=== PATIENT | female | born 1945 | race Caucasian/White ===

== ENCOUNTER 2017-06-30 15:10 | Inpatient (IN) | payer MEDICARE ==
[~2017-06-30] VITALS: Ht 160 cm; Wt 112.5 kg
[~2017-06-30 15:10] MED LIST: ATORVASTATIN CA40 M1 PO; CALCIUM PO; CIPRO500 MG PO; COUMADIN4 M2 PO; CUBICIN IV; Clopidogrel75 MG PO; EFFEXOR XR37.5 M1 PO; HYDROCODONE BIT1 T11 PO; KLONOPIN0.5 MG PO; LIPITOR40 MG PO; NEURONTIN100 MG PO; NEURONTIN300 MG PO; NORCO 325 MG-101 TAB PO; OXYCODONE AND A1 TA9 PO; Oscal,Oyster S500 MG PO; PLAVIX75 MG PO; SENNA8.6 MG PO; VENLAFAXINE37.5 M1 PO; VITAMIN D50000 I3 PO; ZOFRAN ODT4 MG SL
[2017-06-30 15:14] VITALS: BP 152/70
[2017-06-30 15:53] LABS: BASO % 0.4 % (0.0-1.0); EOS % 0.1 % (1.0-4.0); HEMATOCRIT 35.3 % (37.0-47.0); HEMOGLOBIN 10.7 g/dl (12.0-16.0); LYMPH # 1.4 10*3/uL (1.3-4.4); MEAN CELL VOLUME 78.6 fl (81.0-99.0); MEAN CORPUSCULAR HGB 23.8 pg (27.0-31.0); MEAN CORPUSCULAR HGB CONC 30.3 g/dl (33.0-37.0); MEAN PLATELET VOLUME 9.2 fl (9.6-12.3); MONO # 0.9 10*3/uL (0.1-1.0); NEUT # 7.1 10*3/uL (2.3-7.9); NEUT % 75.1 % (47.0-73.0); PLATELET COUNT AUTOMATED 358 10*3/uL (130-400); RED BLOOD COUNT 4.49 10*6/uL (4.10-5.10); RED CELL DISTRI WIDTH 17.8 % (0-14.5); WHITE BLOOD COUNT 9.4 10*3/uL (4.8-10.8)
[2017-06-30 16:00] LABS: ACT PARTIAL THROMBO TIME 20.7 SECONDS (20.8-31.5); INTERNATIONAL NORM RATIO 0.9 (2.0-3.5)
[2017-06-30 16:13] LABS: ALBUMIN 3.1 gm/dl (3.1-4.5); ALKALINE PHOSPHATASE 137 U/L (45-117); BUN 19 mg/dl (7-24); CHLORIDE 108 mmol/L (98-107); CREATININE 0.81 mg/dL (0.55-1.02); POTASSIUM 4.5 mmol/L (3.5-5.1); SGOT/AST 17 IU/L (3-35); SGPT/ALT 19 U/L (12-78); SODIUM 142 mmol/L (136-145); TOTAL PROTEIN 7.5 gm/dL (6.4-8.2); TROPONIN I < 0.015 ng/ml (<0.045)
[2017-06-30 16:30] VITALS: BP 176/78
[2017-06-30 17:30] VITALS: BP 168/69
[2017-06-30 18:41] VITALS: BP 162/68
[2017-06-30] MEDS ORDERED: VISTARIL25 M2 PO (19:10)
[2017-06-30] MEDS ORDERED: Motrin,Rufen800 MG PO (19:11)
[2017-06-30 20:00] VITALS: BP 149/78
[2017-06-30 21:35] LABS: BILIRUBIN NEGATIVE (NEGATIVE); BLOOD NEGATIVE (NEGATIVE); CLARITY SL CLOUDY (CLEAR); COLOR YELLOW (YELLOW); GLUCOSE NEGATIVE (NEGATIVE); KETONE NEGATIVE (NEGATIVE); LEUKO ESTERASE 2+ (NEGATIVE); NITRITE POSITIVE (NEGATIVE); PH 5.5 (5.0-9.0); UROBILINOGEN 0.2 E.U./dl (0.2-1.0)
[2017-06-30 21:52] LABS: BACTERIA 3+; EPITHELIAL CELLS TNTC
[2017-06-30 21:53] LABS: WBC TNTC wbc/hpf (0-5)
[2017-06-30 23:57] VITALS: BP 150/68
[2017-07-01 03:18] VITALS: BP 148/62
[2017-07-01 07:27] LABS: BASO % 0.6 % (0.0-1.0); EOS % 0.3 % (1.0-4.0); HEMATOCRIT 32.8 % (37.0-47.0); HEMOGLOBIN 9.9 g/dl (12.0-16.0); LYMPH # 1.4 10*3/uL (1.3-4.4); LYMPH % 20.5 % (27.0-41.0); MEAN CELL VOLUME 77.9 fl (81.0-99.0); MEAN CORPUSCULAR HGB 23.5 pg (27.0-31.0); MEAN CORPUSCULAR HGB CONC 30.2 g/dl (33.0-37.0); MEAN PLATELET VOLUME 9.5 fl (9.6-12.3); MONO # 0.6 10*3/uL (0.1-1.0); MONO % 8.1 % (3.0-9.0); NEUT # 4.9 10*3/uL (2.3-7.9); NEUT % 70.2 % (47.0-73.0); PLATELET COUNT AUTOMATED 341 10*3/uL (130-400); RED BLOOD COUNT 4.21 10*6/uL (4.10-5.10); RED CELL DISTRI WIDTH 17.7 % (0-14.5); WHITE BLOOD COUNT 6.9 10*3/uL (4.8-10.8)
[2017-07-01 07:44] LABS: ACT PARTIAL THROMBO TIME 21.9 SECONDS (20.8-31.5); INTERNATIONAL NORM RATIO 0.9 (2.0-3.5)
[2017-07-01 07:45] LABS: ALBUMIN 2.8 gm/dl (3.1-4.5); BUN 13 mg/dl (7-24); CHLORIDE 108 mmol/L (98-107); CHOLESTEROL 124 mg/dL (<200); CREATININE 0.63 mg/dL (0.55-1.02); PHOSPHOROUS 3.7 mg/dL (2.5-4.9); POTASSIUM 4.2 mmol/L (3.5-5.1); SGOT/AST 15 IU/L (3-35); SGPT/ALT 17 U/L (12-78); SODIUM 142 mmol/L (136-145); TRIGLYCERIDES 66 mg/dl (<150); VLDL CHOLESTEROL 13 mg/dL (6-40)
[2017-07-01 07:51] LABS: ALKALINE PHOSPHATASE 126 U/L (45-117); FREE T4 0.92 ng/dl (0.76-1.46); HDL CHOLESTEROL 81 mg/dl (40-60); LDL CHOLESTEROL 30 mg/dL (9-159); TOTAL PROTEIN 6.7 gm/dL (6.4-8.2)
[2017-07-01 08:54] LABS: VITAMIN D, 25-HYDROXY 19.7 ng/mL (30-100)
[2017-07-01 12:00] VITALS: BP 143/62
[2017-07-01 16:00] VITALS: BP 135/61
[2017-07-01] MEDS ORDERED: ASPIRIN ADULT L81 M2 PO (16:26)
[2017-07-01] MEDS ORDERED: LISINOPRIL10 M1 PO (16:26)
== END 2017-07-01 17:25 | disposition home or self-care (01) | DRG 313 ==
LOC: ED 15:10 → EDHOLD 16:54 → 5E 17:58
PROVIDERS: Family Medicine; Physician Assistant
PROC: 4A02XM4 Measurement of Cardiac Total Activity, External Approach (ICD-10-PCS; principal; 2017-07-01)
PROC: 3E073KZ Introduction of Other Diagnostic Substance into Coronary Artery, Percutaneous Approach (ICD-10-PCS; principal; 2017-07-01)
DX: R07.89 Other chest pain (principal); E87.8 Other disorders of electrolyte and fluid balance, not elsewhere classified; E83.41 Hypermagnesemia; Z68.41 Body mass index [BMI] 40.0-44.9, adult; I10 Essential (primary) hypertension; F41.9 Anxiety disorder, unspecified; G62.9 Polyneuropathy, unspecified; F32.9 Major depressive disorder, single episode, unspecified; E78.5 Hyperlipidemia, unspecified; E66.9 Obesity, unspecified; Z96.653 Presence of artificial knee joint, bilateral; D50.9 Iron deficiency anemia, unspecified; D72.810 Lymphocytopenia; Z86.73 Personal history of transient ischemic attack (TIA), and cerebral infarction without residual deficits; Z90.49 Acquired absence of other specified parts of digestive tract; Z90.710 Acquired absence of both cervix and uterus; Z91.041 Radiographic dye allergy status; Z79.01 Long term (current) use of anticoagulants; Z79.899 Other long term (current) drug therapy; Z83.3 Family history of diabetes mellitus

== ENCOUNTER 2017-08-12 17:39 | Emergency (ER) | payer MEDICARE ==
[~2017-08-12] VITALS: Ht 160 cm; Wt 102.5 kg
[~2017-08-12 17:39] MED LIST changes: +ASPIRIN ADULT L81 M2 PO; +LISINOPRIL10 M1 PO; +Motrin,Rufen800 MG PO; +VISTARIL25 M2 PO
== END 2017-08-12 19:33 | disposition home or self-care (01) ==
LOC: ED 17:39
DX: M79.662 Pain in left lower leg (principal); Z86.718 Personal history of other venous thrombosis and embolism; Z91.041 Radiographic dye allergy status; Z79.899 Other long term (current) drug therapy

== ENCOUNTER 2019-07-26 12:28 | Emergency (ER) | payer MEDICARE ==
[~2019-07-26] VITALS: Ht 162.5 cm; Wt 86.2 kg
[2019-07-26 13:08] LABS: BASO # 0.1 10*3/uL (0.0-0.1); BASO % 0.8 % (0.0-1.0); EOS # 0.2 10*3/uL (0.0-0.4); EOS % 2.3 % (1.0-4.0); HEMATOCRIT 36.7 % (37.0-47.0); HEMOGLOBIN 10.3 g/dl (12.0-16.0); LYMPH # 1.6 10*3/uL (1.3-4.4); LYMPH % 15.9 % (27.0-41.0); MEAN CELL VOLUME 85.3 fl (81.0-99.0); MEAN CORPUSCULAR HGB CONC 28.1 g/dl (33.0-37.0); MEAN PLATELET VOLUME 9.3 fl (9.6-12.3); MONO # 0.9 10*3/uL (0.1-1.0); MONO % 8.9 % (3.0-9.0); NEUT # 7.3 10*3/uL (2.3-7.9); NEUT % 71.6 % (47.0-73.0); NUCLEATED RED BLOOD CELL 0.2 % (0.0-0.0); PLATELET COUNT AUTOMATED 484 10*3/uL (130-400); RED CELL DISTRI WIDTH 24.1 % (0-14.5); WHITE BLOOD COUNT 10.2 10*3/uL (4.8-10.8)
[2019-07-26 13:20] LABS: ACT PARTIAL THROMBO TIME 22.6 SECONDS (20.0-32.1); INTERNATIONAL NORM RATIO 0.9 (2.0-3.5)
[2019-07-26 13:27] LABS: ALBUMIN 2.9 gm/dl (3.1-4.5); ALKALINE PHOSPHATASE 125 U/L (45-117); BUN 12 mg/dl (7-24); CHLORIDE 107 mmol/L (98-107); CREATININE 0.74 mg/dL (0.55-1.02); POTASSIUM 4.2 mmol/L (3.5-5.1); SGOT/AST 18 IU/L (3-35); SGPT/ALT 17 U/L (12-78); SODIUM 140 mmol/L (136-145); TOTAL PROTEIN 6.9 gm/dL (6.4-8.2)
[2019-07-26 13:29] LABS: TROPONIN I < 0.015 ng/ml (<0.045)
[2019-07-26 14:48] LABS: BILIRUBIN 1+ (NEGATIVE); BLOOD NEGATIVE (NEGATIVE); CLARITY CLOUDY (CLEAR); COLOR YELLOW (YELLOW); GLUCOSE NEGATIVE (NEGATIVE); KETONE 1+ (NEGATIVE); LEUKO ESTERASE 1+ (NEGATIVE); NITRITE POSITIVE (NEGATIVE)
[2019-07-26 14:49] LABS: BACTERIA 4+; WBC 21-30 wbc/hpf (0-5)
[2019-07-26 14:53] LABS: MUCOUS 2+
== END 2019-07-26 18:21 | disposition short-term general hospital (02) ==
LOC: ED 12:28
PROVIDERS: Emergency Medicine
DX: G40.901 Epilepsy, unspecified, not intractable, with status epilepticus (principal); I10 Essential (primary) hypertension; E66.9 Obesity, unspecified; G62.9 Polyneuropathy, unspecified; E78.5 Hyperlipidemia, unspecified; Z68.39 Body mass index [BMI] 39.0-39.9, adult; Z91.041 Radiographic dye allergy status; Z79.899 Other long term (current) drug therapy; Z86.718 Personal history of other venous thrombosis and embolism

== ENCOUNTER 2019-08-02 05:43 | Inpatient (IN) | payer MEDICARE ==
[~2019-08-02] VITALS: Ht 160 cm; Wt 104.9 kg
[2019-08-02 05:51] VITALS: BP 103/61
[2019-08-02 07:10] VITALS: BP 117/60
[2019-08-02 07:15] LABS: ACT PARTIAL THROMBO TIME 23.8 SECONDS (20.0-32.1); INTERNATIONAL NORM RATIO 0.9 (2.0-3.5)
[2019-08-02 07:19] LABS: BASO % 0.7 % (0.0-1.0); EOS # 0.1 10*3/uL (0.0-0.4); EOS % 2.4 % (1.0-4.0); HEMATOCRIT 32.5 % (37.0-47.0); HEMOGLOBIN 9.4 g/dl (12.0-16.0); LYMPH # 0.8 10*3/uL (1.3-4.4); MEAN CELL VOLUME 83.1 fl (81.0-99.0); MEAN CORPUSCULAR HGB CONC 28.9 g/dl (33.0-37.0); MEAN PLATELET VOLUME 9.3 fl (9.6-12.3); MONO # 0.7 10*3/uL (0.1-1.0); MONO % 12.8 % (3.0-9.0); NEUT # 3.8 10*3/uL (2.3-7.9); NEUT % 68.4 % (47.0-73.0); PLATELET COUNT AUTOMATED 412 10*3/uL (130-400); RED BLOOD COUNT 3.91 10*6/uL (4.10-5.10); RED CELL DISTRI WIDTH 23.1 % (0-14.5); WHITE BLOOD COUNT 5.5 10*3/uL (4.8-10.8)
[2019-08-02 07:23] LABS: ALBUMIN 2.7 gm/dl (3.1-4.5); ALKALINE PHOSPHATASE 101 U/L (45-117); BUN 12 mg/dl (7-24); CHLORIDE 110 mmol/L (98-107); CREATININE 0.75 mg/dL (0.55-1.02); SGOT/AST 22 IU/L (3-35); SGPT/ALT 20 U/L (12-78); TOTAL PROTEIN 6.4 gm/dL (6.4-8.2)
[2019-08-02 07:26] LABS: POTASSIUM 4.2 mmol/L (3.5-5.1); SODIUM 140 mmol/L (136-145)
[2019-08-02 08:40] VITALS: BP 111/42
[2019-08-02 09:07] VITALS: BP 111/42
[2019-08-02] MEDS ORDERED: HYDROCHLOROTH12.5 M3 PO (09:12)
[2019-08-02] MEDS ORDERED: LOSARTAN POTASS50 M1 PO (09:13)
[2019-08-02] MEDS ORDERED: CEFDINIR300 MG PO (09:14)
[2019-08-02] MEDS ORDERED: KEPPRA500 MG PO (09:14)
[2019-08-02] MEDS ORDERED: IMITREX25 M1 PO (09:15)
[2019-08-02] MEDS ORDERED: VENLAFAXINE150 MG PO (09:15)
[2019-08-02] MEDS ORDERED: MIRALAX POWDER17 G1 PO (09:16)
[2019-08-02] MEDS ORDERED: PLAVIX75 M1 PO (09:16)
[2019-08-02] MEDS ORDERED: PROTONIX40 MG PO (09:17)
[2019-08-02] MEDS ORDERED: SENNA-S LAXATI1 EACH PO (09:22)
[2019-08-02] MEDS ORDERED: ZOFRAN4 MG PO (09:23)
[2019-08-02 16:00] VITALS: BP 115/52
[2019-08-02 20:00] VITALS: BP 123/57
[2019-08-03] VITALS: BP 110/61
[2019-08-03 06:55] LABS: ALBUMIN 2.1 gm/dl (3.1-4.5); BUN 10 mg/dl (7-24); CHLORIDE 114 mmol/L (98-107); CHOLESTEROL 108 mg/dL (<200); CREATININE 0.66 mg/dL (0.55-1.02); PHOSPHOROUS 3.3 mg/dL (2.5-4.9); POTASSIUM 4.3 mmol/L (3.5-5.1); SGOT/AST 34 IU/L (3-35); SGPT/ALT 18 U/L (12-78); SODIUM 142 mmol/L (136-145)
[2019-08-03 07:02] LABS: ALKALINE PHOSPHATASE 89 U/L (45-117); FREE T4 0.95 ng/dl (0.76-1.46); HDL CHOLESTEROL 52 mg/dl (40-60); LDL CHOLESTEROL 37 mg/dL (9-159); TOTAL PROTEIN 5.6 gm/dL (6.4-8.2); TRIGLYCERIDES 97 mg/dl (<150); VLDL CHOLESTEROL 19 mg/dL (6-40)
[2019-08-03 07:05] LABS: BASO % 0.5 % (0.0-1.0); EOS # 0.1 10*3/uL (0.0-0.4); EOS % 2.6 % (1.0-4.0); LYMPH # 1.1 10*3/uL (1.3-4.4); LYMPH % 27.3 % (27.0-41.0); MEAN CELL VOLUME 85.1 fl (81.0-99.0); MEAN CORPUSCULAR HGB 24.3 pg (27.0-31.0); MEAN CORPUSCULAR HGB CONC 28.6 g/dl (33.0-37.0); MEAN PLATELET VOLUME 9.3 fl (9.6-12.3); MONO # 0.7 10*3/uL (0.1-1.0); MONO % 17.4 % (3.0-9.0); NEUT % 51.7 % (47.0-73.0); PLATELET COUNT AUTOMATED 325 10*3/uL (130-400); RED BLOOD COUNT 3.29 10*6/uL (4.10-5.10); RED CELL DISTRI WIDTH 22.7 % (0-14.5); WHITE BLOOD COUNT 3.8 10*3/uL (4.8-10.8)
[2019-08-03 08:00] VITALS: BP 118/60
[2019-08-03 12:00] VITALS: BP 110/50
[2019-08-03 16:00] VITALS: BP 123/58
[2019-08-03 20:00] VITALS: BP 127/43; BP 130/50
[2019-08-04] VITALS: BP 102/56
[2019-08-04 06:23] LABS: BASO % 0.5 % (0.0-1.0); HEMATOCRIT 29.2 % (37.0-47.0); LYMPH # 1.2 10*3/uL (1.3-4.4); LYMPH % 28.6 % (27.0-41.0); MEAN CELL VOLUME 85.6 fl (81.0-99.0); MEAN CORPUSCULAR HGB 23.5 pg (27.0-31.0); MEAN CORPUSCULAR HGB CONC 27.4 g/dl (33.0-37.0); MEAN PLATELET VOLUME 9.2 fl (9.6-12.3); MONO # 0.5 10*3/uL (0.1-1.0); MONO % 12.2 % (3.0-9.0); NEUT # 2.3 10*3/uL (2.3-7.9); NEUT % 57.2 % (47.0-73.0); PLATELET COUNT AUTOMATED 357 10*3/uL (130-400); RED BLOOD COUNT 3.41 10*6/uL (4.10-5.10); RED CELL DISTRI WIDTH 22.9 % (0-14.5); WHITE BLOOD COUNT 4.1 10*3/uL (4.8-10.8)
[2019-08-04 06:30] LABS: BUN 6 mg/dl (7-24); CHLORIDE 114 mmol/L (98-107); CREATININE 0.65 mg/dL (0.55-1.02); POTASSIUM 3.7 mmol/L (3.5-5.1); SODIUM 145 mmol/L (136-145)
[2019-08-04 08:29] VITALS: BP 100/54
[2019-08-04] MEDS ORDERED: CIPROFLOXACIN500 M4 PO (10:52)
[2019-08-04] MEDS ORDERED: MIRTAZAPINE15 M2 PO (10:52)
[2019-08-04 12:00] VITALS: BP 104/69
== END 2019-08-04 16:30 | disposition other institution (70) | DRG 312 ==
LOC: ED 05:43 → 4E 08:04 → EDHOLD 08:04 → 4E 08:19
PROVIDERS: Emergency Medicine; Internal Medicine; ADMIT Family Medicine
PROC: 0HQ1XZZ Repair Face Skin, External Approach (ICD-10-PCS; principal; 2019-08-02)
DX: I95.1 Orthostatic hypotension (principal); E43 Unspecified severe protein-calorie malnutrition; F33.3 Major depressive disorder, recurrent, severe with psychotic symptoms; Z68.41 Body mass index [BMI] 40.0-44.9, adult; N30.00 Acute cystitis without hematuria; S01.81XA Laceration without foreign body of other part of head, initial encounter; F41.9 Anxiety disorder, unspecified; F43.21 Adjustment disorder with depressed mood; W19.XXXA Unspecified fall, initial encounter; S70.01XA Contusion of right hip, initial encounter; S09.90XA Unspecified injury of head, initial encounter; E87.8 Other disorders of electrolyte and fluid balance, not elsewhere classified; R73.9 Hyperglycemia, unspecified; D50.9 Iron deficiency anemia, unspecified; I10 Essential (primary) hypertension; E78.5 Hyperlipidemia, unspecified; G62.9 Polyneuropathy, unspecified; F41.8 Other specified anxiety disorders; D47.3 Essential (hemorrhagic) thrombocythemia; F44.9 Dissociative and conversion disorder, unspecified; B95.2 Enterococcus as the cause of diseases classified elsewhere; Y93.89 Activity, other specified; Z79.899 Other long term (current) drug therapy; Z79.82 Long term (current) use of aspirin; Z88.8 Allergy status to other drugs, medicaments and biological substances; Y99.8 Other external cause status; Y92.10 Unspecified residential institution as the place of occurrence of the external cause

== ENCOUNTER → 2020-03-11 | Outpatient (CLI) | payer MEDICARE ==
[~2020-03-11] MED LIST changes: +CEFDINIR300 MG PO; +CIPROFLOXACIN500 M4 PO; +DIVALPROEX SOD500 MG PO; +HYDROCHLOROTH12.5 M3 PO; +IMITREX25 M1 PO; +KEPPRA500 MG PO; +LEVETIRACETAM1000 M1 PO; +LOSARTAN POTASS50 M1 PO; +LOSARTAN-HCTZ1 EACH PO; +MIRALAX POWDER17 G1 PO; +MIRTAZAPINE15 M2 PO; +PLAVIX75 M1 PO; +PROTONIX40 MG PO; +SENNA-S LAXATI1 EACH PO; +VENLAFAXINE HC100 MG PO; +VENLAFAXINE150 MG PO; +ZOFRAN4 MG PO
[2020-03-11 11:01] LABS: HEMATOCRIT 46.6 % (37.0-47.0); MEAN CELL VOLUME 99.6 fl (81.0-99.0); MEAN CORPUSCULAR HGB 30.8 pg (27.0-31.0); MEAN CORPUSCULAR HGB CONC 30.9 g/dl (33.0-37.0); MEAN PLATELET VOLUME 9.9 fl (9.6-12.3); RED BLOOD COUNT 4.68 10*6/uL (4.10-5.10); RED CELL DISTRI WIDTH 14.4 % (0-14.5); WHITE BLOOD COUNT 5.8 10*3/uL (4.8-10.8)
[2020-03-11 11:32] LABS: ALKALINE PHOSPHATASE 94 U/L (45-117); BUN 18 mg/dl (7-24); CHLORIDE 109 mmol/L (98-107); CHOLESTEROL 160 mg/dL (<200); CREATININE 0.88 mg/dL (0.55-1.02); HDL CHOLESTEROL 71 mg/dl (40-60); LDL CHOLESTEROL 67 mg/dL (9-159); POTASSIUM 3.9 mmol/L (3.5-5.1); SGOT/AST 18 IU/L (3-35); SGPT/ALT 19 U/L (12-78); SODIUM 134 mmol/L (136-145); TOTAL PROTEIN 7.1 gm/dL (6.4-8.2); TRIGLYCERIDES 112 mg/dl (<150); VLDL CHOLESTEROL 22 mg/dL (6-40)
[2020-03-11 12:13] LABS: VITAMIN D, 25-HYDROXY 10.8 ng/mL (30-100)
== END | disposition home or self-care (01) ==
LOC: LAB 10:28
PROVIDERS: ATTEND Family Medicine
DX: E78.00 Pure hypercholesterolemia, unspecified (principal); K21.9 Gastro-esophageal reflux disease without esophagitis; E55.9 Vitamin D deficiency, unspecified; R53.83 Other fatigue; I10 Essential (primary) hypertension; I63.9 Cerebral infarction, unspecified

== ENCOUNTER 2020-03-20 15:18 | Inpatient (IN) | payer MEDICARE ==
[~2020-03-20] VITALS: Ht 160 cm; Wt 100.9 kg
[~2020-03-20 15:18] MED LIST changes: -DIVALPROEX SOD500 MG PO; -LEVETIRACETAM1000 M1 PO; -LOSARTAN-HCTZ1 EACH PO; -VENLAFAXINE HC100 MG PO
--- NOTE | 2020-03-20 15:30 | NUR ---
PATIENT HAS BEEN STRAIGHT CATHED FOR URINE AT THIS TIME. 300ML OUT OF DARK BTU CLEAR URINE.
[2020-03-20 15:58] VITALS: BP 174/97
--- NOTE | 2020-03-20 16:01 | NUR ---
PATIENT HAS RASH NOTED TO BL ABDOMINAL FOLDS AND BL UPPER THIGH FOLDS. PATIENT DENIES PHOTOS AT THIS TIME.
[2020-03-20 16:20] LABS: HEMATOCRIT 49.3 % (37.0-47.0); MEAN CELL VOLUME 98.8 fl (81.0-99.0); MEAN CORPUSCULAR HGB 31.5 pg (27.0-31.0); MEAN CORPUSCULAR HGB CONC 31.8 g/dl (33.0-37.0); MEAN PLATELET VOLUME 9.2 fl (9.6-12.3); PLATELET COUNT AUTOMATED 198 10*3/uL (130-400); RED BLOOD COUNT 4.99 10*6/uL (4.10-5.10); RED CELL DISTRI WIDTH 13.8 % (0-14.5); WHITE BLOOD COUNT 7.3 10*3/uL (4.8-10.8)
--- NOTE | 2020-03-20 16:23 | NUR ---
dr connors made aware of daughter inquiring patient's condition. He states that he will go and speak with her
[2020-03-20 16:31] LABS: BILIRUBIN 1+ (Negative); BLOOD Negative (Negative); CLARITY Clear (Clear); COLOR Dark Yellow (Yellow); GLUCOSE Negative (Negative); KETONE Trace (Negative); LEUKO ESTERASE 1+ (Negative); NITRITE Positive (Negative); SPECIFIC GRAVITY 1.025 (1.001-1.030)
[2020-03-20 16:35] LABS: ACT PARTIAL THROMBO TIME 24.5 SECONDS (20.0-32.1)
[2020-03-20 16:39] LABS: URINE AMPHETAMINES < 1000 (1000ng/ml); URINE BARBITURATES < 200 (200ng/ml); URINE BENZODIAZEPINES < 200 (200ng/ml); URINE CANNABINOIDS (THC) < 50 (50ng/ml); URINE COCAINE < 300 (300ng/ml); URINE METHADONE < 300 (300ng/ml); URINE OPIATES < 300 (300ng/ml)
[2020-03-20 16:40] LABS: BACTERIA 1+; MUCOUS 2+; RBC 0-2 rbc/hpf (0-2)
[2020-03-20 16:41] LABS: URINE PHENCYCLIDINE < 25 (25ng/ml)
[2020-03-20 16:44] LABS: BASOPHILS 1 % (0-1); TOTAL CELLS COUNTED 100 #CELLS
[2020-03-20 16:45] LABS: PLATELET SUFFICIENCY NORMAL (NORMAL)
[2020-03-20 17:09] LABS: ALBUMIN 3.5 gm/dl (3.1-4.5); ALKALINE PHOSPHATASE 110 U/L (45-117); BUN 15 mg/dl (7-24); CHLORIDE 104 mmol/L (98-107); CREATININE 0.86 mg/dL (0.55-1.02); POTASSIUM 3.9 mmol/L (3.5-5.1); SGOT/AST 20 IU/L (3-35); SGPT/ALT 24 U/L (12-78); SODIUM 138 mmol/L (136-145)
[2020-03-20 17:23] LABS: TROPONIN I < 0.015 ng/ml (<0.045)
--- NOTE | 2020-03-20 18:41 | NUR ---
PATIENT UNABLE TO GO TO FLOOR UNTIL AFTER SHIFT CHANGE.
--- NOTE | 2020-03-20 19:05 | NUR ---
PATIENT REPORT TO JERMAINE HERNANDEZ AT THIS TIME.
--- NOTE | 2020-03-20 19:13 | NUR ---
NURSE TO NURSE REPORT GIVEN TO THIS RN
[2020-03-20] MEDS ORDERED: DIVALPROEX SOD500 MG PO (19:34)
[2020-03-20] MEDS ORDERED: LEVETIRACETAM1000 M1 PO (19:35)
[2020-03-20] MEDS ORDERED: LOSARTAN-HCTZ1 EACH PO (19:36)
[2020-03-20] MEDS ORDERED: VENLAFAXINE HC100 MG PO (19:37)
[2020-03-20 19:50] VITALS: BP 127/43
[2020-03-20 20:45] VITALS: BP 120/50
--- NOTE | 2020-03-20 20:45 | NUR ---
A 74, admitted to 5E, under the services of ZURI Syed MD with a diagnosis of STROKE LIKE SYMPTOMS. Chief complaint is WEAKNESS. Patient arrived via bed from ER. Monitor applied. Initial assessment completed. Vital signs taken and recorded. ZURI SYED MD notified of admission to the unit. Orders received. See assessment for past medical history, medications and allergies. Patient and/or family oriented to unit. [facility] visitation policy reviewed. Clothing/patient valuable form completed. JUAN WEATHERS
--- NOTE | 2020-03-20 21:00 | NUR ---
DR URIBE CALLED. ORDERS RECEIVED. NOTIFIED OF UNABLE TO VERIFY HOME MEDICATIONS. DAUGHTER WILL BRING LIST IN AM.
--- NOTE | 2020-03-20 23:00 | NUR ---
PT LYING IN BED, EYES CLOSED. RESPIRATIONS EASY AND UNLABORED. CALL LIGHT IN REACH
[2020-03-21] VITALS: BP 116/43
--- NOTE | 2020-03-21 02:00 | NUR ---
PT SLEEPING AT THIS TIME. IV FLUIDS INFUSING WITHOUT DIFFICULTY. NO S/S OF DISTRESS NOTED. CALL LIGHT IN REACH
--- NOTE | 2020-03-21 05:45 | NUR ---
IN TO SEE PT WITH WOUND CARE. PT ASSISTED ONTO BED BLACKMAN AT THIS TIME. NO COMPLAINTS.
[2020-03-21 06:29] LABS: BASO % 0.5 % (0.0-1.0); EOS % 0.2 % (1.0-4.0); LYMPH # 1.1 10*3/uL (1.3-4.4); LYMPH % 19.4 % (27.0-41.0); MEAN CELL VOLUME 98.8 fl (81.0-99.0); MEAN CORPUSCULAR HGB 31.1 pg (27.0-31.0); MEAN CORPUSCULAR HGB CONC 31.4 g/dl (33.0-37.0); MEAN PLATELET VOLUME 9.6 fl (9.6-12.3); MONO # 0.7 10*3/uL (0.1-1.0); MONO % 12.7 % (3.0-9.0); NEUT # 3.9 10*3/uL (2.3-7.9); NEUT % 66.3 % (47.0-73.0); PLATELET COUNT AUTOMATED 192 10*3/uL (130-400); RED BLOOD COUNT 4.25 10*6/uL (4.10-5.10); RED CELL DISTRI WIDTH 14.1 % (0-14.5); WHITE BLOOD COUNT 5.8 10*3/uL (4.8-10.8)
[2020-03-21 06:53] LABS: BUN 15 mg/dl (7-24); CHLORIDE 109 mmol/L (98-107); CREATININE 0.58 mg/dL (0.55-1.02); POTASSIUM 3.9 mmol/L (3.5-5.1); SODIUM 143 mmol/L (136-145)
[2020-03-21 08:00] VITALS: BP 143/60
--- NOTE | 2020-03-21 08:21 | NUR ---
SWITCHING IV TUBING, NS WASTED AT THIS TIME.
--- NOTE | 2020-03-21 09:00 | NUR ---
Soloist Dancer in to talk to patient. Patient states lives at home with her . There are 0 steps in the home. Physician: Dr. Will Logan Pharmacy: [facility] or mail order Home health services: none Patient's level of ADLs: MINIMAL ASSIST Patient has working utilities: yes DME: walker Follow-up physician's appointment after d/c: she prefers to make her own follow up appt after discharge Does patient want to access PORTAL?: no Discharge plan discussed with patient. She lives at home with her . She states she needs assistance with her ADLs and ambulates with a walker. Discussed short term rehab and she is agreeable. When provided with a list of facilities she chose [facility]. signal worker notified. JAZMIN DESOUZA
[2020-03-21 12:00] VITALS: BP 131/57
--- NOTE | 2020-03-21 14:33 | NUR ---
W[employer]EWARD FAXED REFERRAL TO [facility] WILL NEED PT/OT EVAL.
[2020-03-21 16:00] VITALS: BP 124/56
--- NOTE | 2020-03-21 19:30 | NUR ---
PATIENT RESTING IN BED. PATIENT TEARFUL AND STATES SHE HASN'T BEEN ABLE TO GET HER PHONE TO WORK TO CALL HER AND THAT SHE HASN'T BEEN WITH IT. ASSISTED PATIENT WITH USING HER PHONE AND WE WERE ABLE TO REACH HER . PATIENT STATES NOTICING SHE'S BEEN CONFUSED. VOICES NO OTHER CONCERNS. ASSESSMENT COMPLETE. RESPS EASY AND REGULAR. CALL LIGHT IN REACH. WILL MONITOR.
--- NOTE | 2020-03-21 19:37 | NUR ---
24 HR chart check completed.
[2020-03-21 20:00] VITALS: BP 140/53
[2020-03-22] VITALS: BP 111/44
--- NOTE | 2020-03-22 03:48 | NUR ---
MEDICATED WITH PRN TYLENOL FOR CO A HEADACHE. WILL ASSESS EFFECTIVENESS. CALL LIGHT IN REACH.
--- NOTE | 2020-03-22 07:45 | NUR ---
PHYSICAL THERAPY Eval and screen received will follow Jemima Machuca PT
--- NOTE | 2020-03-22 08:30 | NUR ---
Discussed discharge planning with Dr. Ji. Dr. Ji states patient doesn't want to go to [facility]. CM in to see patient. PT/OT in room. Discussed rehab at [facility] and patient would prefer not to go back there as the last time she was there she fell out of bed, hitting her head, and being sent to the hospital ER for stitches. Discussed another rehab facility and she wishes for CM to reach out to her family. Discussed home health care services and she is agreeable. She has had home health in the past but is unsure of the company. Will reach out to family.
--- NOTE | 2020-03-22 08:35 | NUR ---
PHYSICAL THERAPY Physical Therapy evaluation completed on 5th floor with full evaluation to follow. Recommend physical therapy per plan of care and SNF upon discharge. Thank you for this referral. Roberto Gayle SPT Jemima Machuca PT
--- NOTE | 2020-03-22 08:35 | NUR ---
Occupational Therapy evaluation completed on 5 with full eval to follow. Precautions include fall risk; bed alarm, +2 transfer assist, ww use w/assist,obesity, slow rate of response and slow processing,high complexity level [id number]. Recommend OT per pOC and SNF. Pt wants to return home w/ HH. Thank you for this referral. Jany Arriola OTr/L
--- NOTE | 2020-03-22 09:17 | NUR ---
Spoke to daughter, Mee, regarding discharge planning. Discussed short term rehab vs home health care services. Daughter states patient was at [facility] and it was a horrible experience. Her mother fell out of bed twice and had to be sent to the hospital ER for stitches. She would prefer her mother to come home. She states the patient's , herself, the daughter's son and [id number] all live in the home and are willing and able to help take care of her. Discussed home health care services and she is agreeable. When provided with a list of agencies she chose [facility] as the patient has had them in the past. Dr. Ji notified.
--- NOTE | 2020-03-22 09:39 | NUR ---
Faxed home health order, face to face, and clinical to [facility]
--- NOTE | 2020-03-22 11:26 | NUR ---
Received call from daughter regarding patient was supposed to get a B12 injection today at [facility]. Dr. Ji notified. Verified with [facility]. New orders received.
[2020-03-22 12:00] VITALS: BP 131/44
[2020-03-22 16:00] VITALS: BP 125/47
--- NOTE | 2020-03-22 19:30 | NUR ---
PATIENT RESTING IN BED. PATIENT STATES SHE IS FEELING MUCH BETTER TODAY. ANSWERING QUESTIONS APPROPRIATELY. ALERT AND ORIENTED X3. PATIENT STATES SHE IS NOT WANTING TO GO TO A FACILITY ON DISCHARGE FOR PT AND THAT HER IS SETTING THEM UP TO COME TO HER HOUSE AND WORK WITH HER. ASSESSMENT COMPLETE. RESPS EASY AND REGULAR. CALL LIGHT IN REACH.
[2020-03-22 20:00] VITALS: BP 141/53
--- NOTE | 2020-03-22 22:20 | NUR ---
24 HR chart check completed.
[2020-03-23] VITALS: BP 132/64
--- NOTE | 2020-03-23 04:00 | NUR ---
PATIENT INCONTINENT OF URINE AT THIS TIME. PATIENT WAS BATHED. COMPLETE BED CHANGE. NYSTATIN POWDER APPLIED UNDER BREASTS AND ABDOMINAL FOLDS AND THERAHONEY AND AN OPTIFOAM APPLIED TO COCCYX WOUND PER WOUND CARE ORDERS. BRIEF APPLIED AND PATIENT REPOSITIONED FOR COMFORT.
[2020-03-23 06:35] LABS: BASO % 0.7 % (0.0-1.0); EOS % 0.2 % (1.0-4.0); LYMPH # 1.2 10*3/uL (1.3-4.4); LYMPH % 22.3 % (27.0-41.0); MEAN CELL VOLUME 98.3 fl (81.0-99.0); MEAN CORPUSCULAR HGB 31.4 pg (27.0-31.0); MEAN PLATELET VOLUME 9.4 fl (9.6-12.3); MONO # 0.6 10*3/uL (0.1-1.0); MONO % 10.3 % (3.0-9.0); NEUT # 3.7 10*3/uL (2.3-7.9); NEUT % 65.6 % (47.0-73.0); PLATELET COUNT AUTOMATED 175 10*3/uL (130-400); RED BLOOD COUNT 4.17 10*6/uL (4.10-5.10); WHITE BLOOD COUNT 5.6 10*3/uL (4.8-10.8)
[2020-03-23 06:52] LABS: BUN 10 mg/dl (7-24); CHLORIDE 110 mmol/L (98-107); CREATININE 0.53 mg/dL (0.55-1.02); POTASSIUM 3.7 mmol/L (3.5-5.1); SODIUM 140 mmol/L (136-145)
[2020-03-23 08:00] VITALS: BP 137/55
--- NOTE | 2020-03-23 11:52 | NUR ---
Discharge instructions reviewed with patient. Patient receptive and verbalizes understanding. Follow-up care arranged. Written instructions given to patient. MELANIE BUCHANAN
--- NOTE | 2020-03-23 12:05 | NUR ---
PATIENT DISCHARGED TO [facility] FOR TRANSPORT HOME BY PRIVATE VEHICLE WITH HER .
--- NOTE | 2020-03-25 07:29 | NUR ---
Faxed discharge instructions and summary to [facility]
== END 2020-03-23 11:52 | disposition home health service (06) | DRG 70 ==
LOC: ED 15:18 → 5E 17:07 → EDHOLD 17:07 → 5E 19:17
PROVIDERS: Emergency Medicine; ADMIT Internal Medicine; ATTEND Internal Medicine
DX: G93.41 Metabolic encephalopathy (principal); E43 Unspecified severe protein-calorie malnutrition; I67.82 Cerebral ischemia; R53.1 Weakness; R62.7 Adult failure to thrive; I10 Essential (primary) hypertension; G40.909 Epilepsy, unspecified, not intractable, without status epilepticus; E78.2 Mixed hyperlipidemia; F41.1 Generalized anxiety disorder; F32.9 Major depressive disorder, single episode, unspecified; G30.0 Alzheimer's disease with early onset; Z96.653 Presence of artificial knee joint, bilateral; Z20.828 Contact with and (suspected) exposure to other viral communicable diseases; E66.9 Obesity, unspecified; G31.9 Degenerative disease of nervous system, unspecified; F02.80 Dementia in other diseases classified elsewhere, unspecified severity, without behavioral disturbance, psychotic disturbance, mood disturbance, and anxiety; Z88.6 Allergy status to analgesic agent; Z88.8 Allergy status to other drugs, medicaments and biological substances; Z91.041 Radiographic dye allergy status; Z86.73 Personal history of transient ischemic attack (TIA), and cerebral infarction without residual deficits; Z91.81 History of falling; Z87.440 Personal history of urinary (tract) infections; Z90.49 Acquired absence of other specified parts of digestive tract; Z90.710 Acquired absence of both cervix and uterus; Z98.84 Bariatric surgery status; Z83.3 Family history of diabetes mellitus; Z68.38 Body mass index [BMI] 38.0-38.9, adult

== ENCOUNTER 2020-04-02 12:44 | Emergency (ER) | payer MEDICARE ==
[~2020-04-02] VITALS: Ht 170.1 cm; Wt 93.0 kg
[~2020-04-02 12:44] MED LIST changes: +DIVALPROEX SOD500 MG PO; +LEVETIRACETAM1000 M1 PO; +LOSARTAN-HCTZ1 EACH PO; +VENLAFAXINE HC100 MG PO
[2020-04-02 13:55] LABS: BASO % 0.4 % (0.0-1.0); HEMATOCRIT 43.2 % (37.0-47.0); LYMPH # 1.2 10*3/uL (1.3-4.4); LYMPH % 15.4 % (27.0-41.0); MEAN CORPUSCULAR HGB 31.5 pg (27.0-31.0); MEAN CORPUSCULAR HGB CONC 32.2 g/dl (33.0-37.0); MEAN PLATELET VOLUME 9.6 fl (9.6-12.3); MONO # 0.8 10*3/uL (0.1-1.0); MONO % 10.8 % (3.0-9.0); NEUT # 5.5 10*3/uL (2.3-7.9); NEUT % 72.7 % (47.0-73.0); PLATELET COUNT AUTOMATED 206 10*3/uL (130-400); RED BLOOD COUNT 4.41 10*6/uL (4.10-5.10); RED CELL DISTRI WIDTH 14.8 % (0-14.5); WHITE BLOOD COUNT 7.5 10*3/uL (4.8-10.8)
[2020-04-02 14:17] LABS: ALKALINE PHOSPHATASE 79 U/L (45-117); BUN 16 mg/dl (7-24); CHLORIDE 101 mmol/L (98-107); CREATININE 0.77 mg/dL (0.55-1.02); POTASSIUM 3.6 mmol/L (3.5-5.1); SGOT/AST 25 IU/L (3-35); SGPT/ALT 23 U/L (12-78); SODIUM 139 mmol/L (136-145); TOTAL PROTEIN 6.8 gm/dL (6.4-8.2)
[2020-04-02 15:44] LABS: BILIRUBIN Negative (Negative); BLOOD Negative (Negative); CLARITY Cloudy (Clear); COLOR Dark Yellow (Yellow); GLUCOSE Negative (Negative); KETONE 2+ (Negative); LEUKO ESTERASE Trace (Negative); NITRITE Positive (Negative); PH 7.5 (4.5-8.0); SPECIFIC GRAVITY 1.025 (1.001-1.030)
[2020-04-02 16:00] LABS: BACTERIA 4+; WBC 21-30 wbc/hpf (0-5)
[2020-04-02] MEDS ORDERED: MACROBID100 M1 PO (16:24)
== END 2020-04-02 16:40 | disposition home or self-care (01) ==
LOC: ED 12:44
PROVIDERS: Nurse Practitioner Family
DX: N39.0 Urinary tract infection, site not specified (principal); Z88.8 Allergy status to other drugs, medicaments and biological substances; Z79.899 Other long term (current) drug therapy

== ENCOUNTER 2020-04-09 11:10 | Emergency (ER) | payer MEDICARE ==
[~2020-04-09] VITALS: Wt 96.6 kg
[~2020-04-09 11:10] MED LIST changes: +MACROBID100 M1 PO
[2020-04-09 11:41] LABS: BASO # 0.1 10*3/uL (0.0-0.1); BASO % 0.5 % (0.0-1.0); EOS # 0.1 10*3/uL (0.0-0.4); EOS % 0.6 % (1.0-4.0); HEMATOCRIT 47.9 % (37.0-47.0); LYMPH # 1.1 10*3/uL (1.3-4.4); LYMPH % 11.5 % (27.0-41.0); MEAN CELL VOLUME 98.8 fl (81.0-99.0); MEAN CORPUSCULAR HGB CONC 32.4 g/dl (33.0-37.0); MEAN PLATELET VOLUME 9.8 fl (9.6-12.3); MONO # 0.9 10*3/uL (0.1-1.0); MONO % 9.3 % (3.0-9.0); NEUT # 7.3 10*3/uL (2.3-7.9); NEUT % 77.5 % (47.0-73.0); PLATELET COUNT AUTOMATED 271 10*3/uL (130-400); RED BLOOD COUNT 4.85 10*6/uL (4.10-5.10); RED CELL DISTRI WIDTH 15.3 % (0-14.5); WHITE BLOOD COUNT 9.4 10*3/uL (4.8-10.8)
[2020-04-09 11:55] LABS: BILIRUBIN Negative (Negative); BLOOD Negative (Negative); CLARITY Clear (Clear); COLOR Dark Yellow (Yellow); GLUCOSE Negative (Negative); KETONE 1+ (Negative); LEUKO ESTERASE Trace (Negative); NITRITE Negative (Negative); PH 5.5 (4.5-8.0); SPECIFIC GRAVITY 1.025 (1.001-1.030)
[2020-04-09 12:02] LABS: ALBUMIN 3.4 gm/dl (3.1-4.5); ALKALINE PHOSPHATASE 106 U/L (45-117); BUN 28 mg/dl (7-24); CHLORIDE 100 mmol/L (98-107); CREATININE 0.98 mg/dL (0.55-1.02); POTASSIUM 3.9 mmol/L (3.5-5.1); SGOT/AST 69 IU/L (3-35); SGPT/ALT 41 U/L (12-78); SODIUM 137 mmol/L (136-145); TOTAL PROTEIN 7.2 gm/dL (6.4-8.2)
[2020-04-09 12:06] LABS: YEAST 3+
[2020-04-09] MEDS ORDERED: SEPTDS PO (13:19)
== END 2020-04-09 13:30 | disposition home or self-care (01) ==
LOC: ED 11:10
PROVIDERS: Emergency Medicine
DX: N39.0 Urinary tract infection, site not specified (principal); K21.9 Gastro-esophageal reflux disease without esophagitis; F32.9 Major depressive disorder, single episode, unspecified; I73.9 Peripheral vascular disease, unspecified; Z91.041 Radiographic dye allergy status; Z88.8 Allergy status to other drugs, medicaments and biological substances; Z79.2 Long term (current) use of antibiotics; Z79.899 Other long term (current) drug therapy; Z98.84 Bariatric surgery status; Z90.49 Acquired absence of other specified parts of digestive tract; Z96.653 Presence of artificial knee joint, bilateral; Z90.710 Acquired absence of both cervix and uterus; Z86.73 Personal history of transient ischemic attack (TIA), and cerebral infarction without residual deficits

== ENCOUNTER 2020-06-01 13:15 | Inpatient (IN) | payer MEDICARE ==
[~2020-06-01] VITALS: Ht 157.5 cm; Wt 83.0 kg
[~2020-06-01 13:15] MED LIST changes: +SEPTDS PO
[2020-06-01 13:19] VITALS: BP 120/89
[2020-06-01 14:15] LABS: BASO # 0.1 10*3/uL (0.0-0.1); BASO % 0.4 % (0.0-1.0); EOS # 0.4 10*3/uL (0.0-0.4); EOS % 3.6 % (1.0-4.0); HEMATOCRIT 48.8 % (37.0-47.0); LYMPH # 0.8 10*3/uL (1.3-4.4); LYMPH % 7.1 % (27.0-41.0); MEAN CORPUSCULAR HGB 32.1 pg (27.0-31.0); MEAN CORPUSCULAR HGB CONC 32.8 g/dl (33.0-37.0); MEAN PLATELET VOLUME 9.6 fl (9.6-12.3); MONO # 0.7 10*3/uL (0.1-1.0); MONO % 5.6 % (3.0-9.0); NEUT # 9.5 10*3/uL (2.3-7.9); NEUT % 81.5 % (47.0-73.0); NUCLEATED RED BLOOD CELL 0.1 10*3/uL (0.0-0.0); NUCLEATED RED BLOOD CELL 0.8 % (0.0-0.0); PLATELET COUNT AUTOMATED 311 10*3/uL (130-400); RED BLOOD COUNT 4.98 10*6/uL (4.10-5.10); RED CELL DISTRI WIDTH 17.3 % (0-14.5); WHITE BLOOD COUNT 11.6 10*3/uL (4.8-10.8)
[2020-06-01 14:30] LABS: ALBUMIN 2.3 gm/dl (3.1-4.5); ALKALINE PHOSPHATASE 126 U/L (45-117); BUN 14 mg/dl (7-24); CHLORIDE 100 mmol/L (98-107); CREATININE 0.72 mg/dL (0.55-1.02); LIPASE 433 U/L (73-393); POTASSIUM 3.2 mmol/L (3.5-5.1); SGOT/AST 71 IU/L (3-35); SGPT/ALT 58 U/L (12-78); SODIUM 136 mmol/L (136-145); TOTAL PROTEIN 6.5 gm/dL (6.4-8.2)
[2020-06-01 14:35] LABS: ACT PARTIAL THROMBO TIME 27.3 SECONDS (20.0-32.1); INTERNATIONAL NORM RATIO 1.2 (2.0-3.5)
[2020-06-01 14:48] LABS: BILIRUBIN 2+ (Negative); BLOOD 1+ (Negative); CLARITY Turbid (Clear); COLOR Dark Yellow (Yellow); GLUCOSE Negative (Negative); KETONE Trace (Negative); LEUKO ESTERASE 2+ (Negative); NITRITE Negative (Negative); PH 5.5 (4.5-8.0); SPECIFIC GRAVITY >= 1.030 (1.001-1.030)
[2020-06-01 14:56] LABS: BACTERIA TRACE; MUCOUS 2+; WBC 21-30 wbc/hpf (0-5); YEAST 4+
[2020-06-01 18:15] LABS: ABG BASE EXCESS 2.8 mmol/L (-2.0-2.0); ARTERIAL BLOOD GAS PH 7.473 (7.35-7.45)
--- NOTE | 2020-06-01 19:33 | NUR ---
IV started left antecubital with #20 protective cath after 1 attempts. Site prepped with Chloroprep. Sterile dressing applied. Patient tolerated procedure well. HL RIGHT ANTECUB DC'D AND DRESSING APPLIED. ROSA GANDHI
--- NOTE | 2020-06-01 21:15 | NUR ---
REPORT RECEIVED FROM ROLANDO CARBONE.
--- NOTE | 2020-06-01 23:38 | NUR ---
PT RESTING IN BED AT THIS TIME. NO VOICED COMPLAINTS. PT GIVEN DRINK OF WATER. CALL LIGHT WITHIN REACH. WILL CONTINUE TO MONITOR.
[2020-06-02] VITALS (8 sets, daily range): BP systolic 113–144; BP diastolic 44–101
--- NOTE | 2020-06-02 01:22 | NUR ---
PT RESTING IN BED AT THIS TIME. NO VOICED COMPLAINTS. WILL CONTINUE TO MONITOR. CALL LIGHT WITHIN REACH.
--- NOTE | 2020-06-02 06:01 | NUR ---
PT SLEEPING AT THIS TIME. NO VOICED COMPLAINTS OR DISTRESS NOTED. WILL CONTINUE TO MONITOR.
[2020-06-02 06:04] LABS: BASO % 0.4 % (0.0-1.0); EOS # 0.1 10*3/uL (0.0-0.4); EOS % 0.7 % (1.0-4.0); HEMATOCRIT 46.9 % (37.0-47.0); LYMPH # 1.2 10*3/uL (1.3-4.4); LYMPH % 10.2 % (27.0-41.0); MEAN CELL VOLUME 98.7 fl (81.0-99.0); MEAN CORPUSCULAR HGB 31.8 pg (27.0-31.0); MEAN CORPUSCULAR HGB CONC 32.2 g/dl (33.0-37.0); MEAN PLATELET VOLUME 10.2 fl (9.6-12.3); MONO # 0.7 10*3/uL (0.1-1.0); MONO % 5.7 % (3.0-9.0); NEUT # 9.3 10*3/uL (2.3-7.9); NEUT % 81.6 % (47.0-73.0); NUCLEATED RED BLOOD CELL 0.1 10*3/uL (0.0-0.0); PLATELET COUNT AUTOMATED 264 10*3/uL (130-400); RED BLOOD COUNT 4.75 10*6/uL (4.10-5.10); RED CELL DISTRI WIDTH 17.2 % (0-14.5); WHITE BLOOD COUNT 11.4 10*3/uL (4.8-10.8)
[2020-06-02 06:34] LABS: ALBUMIN 1.9 gm/dl (3.1-4.5); ALKALINE PHOSPHATASE 109 U/L (45-117); BUN 14 mg/dl (7-24); CHLORIDE 106 mmol/L (98-107); CREATININE 0.56 mg/dL (0.55-1.02); FREE T4 1.06 ng/dl (0.76-1.46); POTASSIUM 3.9 mmol/L (3.5-5.1); SGOT/AST 67 IU/L (3-35); SGPT/ALT 48 U/L (12-78); SODIUM 137 mmol/L (136-145); TOTAL PROTEIN 5.7 gm/dL (6.4-8.2)
--- NOTE | 2020-06-02 09:03 | NUR ---
report from matilda [email or web address]
--- NOTE | 2020-06-02 15:13 | NUR ---
FAMILY CALLED AND CHECKED ON PT. PT OPENED HER EYES, BUT WAS NON VERBAL.
--- NOTE | 2020-06-02 16:17 | NUR ---
CHECKED ON PT, CURRENTLY RESTING COMFORTABLY.
--- NOTE | 2020-06-02 17:36 | NUR ---
DR. ROBERTS NOTIFED OF CHANGE IN METAL STATUS FOR PT, SHE IS MORE LETHARGIC, ORDERED A HEAD CT.
--- NOTE | 2020-06-02 17:40 | NUR ---
ADMISSION ASSESSMENT COMPLETED. PATIENT ONLY RESPONDS TO STERNAL RUB. UNABLE TO INTERVIEW FOR ASSESSMENT. MED REC WAS NOT UPDATED AT THIS TIME.
--- NOTE | 2020-06-02 17:44 | NUR ---
PTS DAUGHTER MONICA NOTIFED PER RESIDENT OF CHANGE IN MENTAL STATUS AND CT ORDERED.
--- NOTE | 2020-06-02 18:14 | NUR ---
EKG ON PT, WAS AWAKE, O2 INCREASED TO 5 LITERS [employer]; CANNULA.
[2020-06-02 18:59] LABS: ABG BASE EXCESS 0.2 mmol/L (-2.0-2.0); ARTERIAL BLOOD GAS PH 7.467 (7.35-7.45)
--- NOTE | 2020-06-02 19:08 | NUR ---
ABG DRAWN ON 5L. GAS WAS SENT TO LAB. PT WAS NT SUCTIONED FOR MODERATE THICK FROTHY WHITE AND BLOOD TINGED. SATS WENT FROM 90-99. VERY COARSE BREATHING AND GURGLING TO CLEAR BREATHING AND DRYER COUGH.
--- NOTE | 2020-06-02 19:10 | NUR ---
REPORT RECEIVED FROM ROLANDO GRADY.
--- NOTE | 2020-06-02 20:16 | NUR ---
pt family called to check on family memeber, family was updated.
--- NOTE | 2020-06-02 23:02 | NUR ---
PT RESTING IN BED AT THIS TIME. CALL LIGHT WITHIN REACH. MEDICATIONS ADMINISTERED. TOLERATED WELL.
[2020-06-03 00:36] VITALS: BP 126/46
[2020-06-03 01:54] VITALS: BP 124/44
--- NOTE | 2020-06-03 01:54 | NUR ---
PT SLEEPING AT THIS TIME. NO VOICED COMPLAINTS. WILL CONTINUE TO MONITOR. CALL LIGHT WITHIN REACH.
[2020-06-03 06:32] VITALS: BP 132/46
--- NOTE | 2020-06-03 06:33 | NUR ---
PT SLEEPING AT THIS TIME. NO VOICED COMPLAINTS. WILL CONTINUE TO MONITOR.
--- NOTE | 2020-06-03 10:19 | NUR ---
EDEMA NOTED TO RIGHT ARM ALONG WITH BRUISING AND 2 SKIN TEARS/.PHOTO TAKEN.
--- NOTE | 2020-06-03 10:28 | NUR ---
UNABLE TO GET PATIENT TO TAKE MORNING MEDICATION, RISK FOR ASPIRATION.
[2020-06-03 11:15] VITALS: BP 123/77
--- NOTE | 2020-06-03 11:15 | NUR ---
A 74, admitted to , under the services of YOLIE Langley DO with a diagnosis of COVID. Chief complaint is SOB. Patient arrived via ambulance from ER. Monitor applied. Initial assessment completed. Vital signs taken and recorded. YOLIE LAGNLEY DO notified of admission to the unit. Orders received. See assessment for past medical history, medications and allergies. Patient and/or family oriented to unit. [facility] visitation policy reviewed. Clothing/patient valuable form completed. MI TOLBERT
--- NOTE | 2020-06-03 11:30 | NUR ---
IN TO ROOM WITH DR ROBERTS TO ASSESS PATIENT. PATIENT IS COLD TO THE TOUCH AND UNRESPONSIVE. PATIENT APPEARED TO BE MOTTLING BUT DR. ROBERTS STATED SHE WAS NOT. PATIENTNOT RESPONDING TO STERNAL RUB. NURSE DID NOT FEEL PULSE BUT DR. ROBERTS STATES HE FELT A PULSE.
--- NOTE | 2020-06-03 11:32 | NUR ---
DR. BARAKAT IN THE [facility]. SPOKE WITH HIM REGARDING CONSULT. STATED PATIENT IS UNRESPONSIVE. NO NEW ORDERS. E
--- NOTE | 2020-06-03 11:32 | NUR ---
DR. MONROE NOTIFIED OF CONSULT.
--- NOTE | 2020-06-03 11:32 | NUR ---
DR. BARAKAT NOTIFIED OF CONSULT
--- NOTE | 2020-06-03 11:36 | NUR ---
ATTEMPTED TO CALL FAMILY MEMBER TO GET INFORMATION REGARDING PATIENT. NO ANSWER, VOICE MAIL BOX FULL SO NO MESSAGE LEFT. WILL CONTINUE TO CALL.
--- NOTE | 2020-06-03 11:38 | NUR ---
SPEECH PATHOLOGY This MANAGER STYLE arrived to pt's room on 4E for swallow evaluation. Pt on 8L via NC and had recently arrived to her room from ED. Pt lethargic; only reponsive to sternal rub, grimacing. This MANAGER STYLE attempted PO trial of puree; however, pt too lethargic to participate and bolus was manually removed from oral cavity. Pt not appropriate for ST eval at this time. Will attempt evaluation at a later time/date. This MANAGER STYLE made pt's RN aware of failed attempte to evaluate. Thank you for this referral. LOPEZ SINHA M.A. [facility]-MANAGER STYLE
[2020-06-03 12:43] LABS: ABG BASE EXCESS -2.3 mmol/L (-2.0-2.0); ARTERIAL BLOOD GAS PH 7.459 (7.35-7.45)
--- NOTE | 2020-06-03 13:00 | NUR ---
SPOKE TO PATIENT'S DAUGHTER. DAUGHTER STATES THAT THE POA IS THE PT'S . HER IS CURRENTLY AT WORK AND SUFFERS FROM A HEARING IMPAIRMENT. DAUGHTER STATES SHE WILL HAVE HER FATHER CALL IN WHEN HE GETS HOME FROM WORK TO SET UP A CODE STATUS FOR THIS PATIENT. DR. ROBERTS NOTIFIED THAT PT STILL DOES NOT HAVE AN ACCURATE CODE STATUS. PT WILL REMAIN A FULL CODE UNTIL STATES OTHERWISE, PER DR. ROBERTS.
[2020-06-03 16:00] VITALS: BP 109/50
--- NOTE | 2020-06-03 16:00 | NUR ---
IN TO ROOM TO GET VITALS. BLOOD PRESSURE COULD NOT BE OBTAINED BY MACHINE IN THE ARM. MANUAL BLOOD PRESSURE ATTEMPTED BUT UNSUCCUSSESSFUL. NURSE LEFT ROOM TO GO TO ICU TO GET DOPPLER. DR. ROBERTS IN THE HALLWAY, INFORMED THAT NURSE COULD NOT GET A BLOOD PRESSURE. NO NEW ORDERS. BLOOD PRESSURE FINALLY OBTAINED IN PATIENT'S LEG. 109/50. WILL CONTINUE TO MONITOR.
--- NOTE | 2020-06-03 18:40 | NUR ---
BUTTON MAKER AND INSTALLER CALLED FLOOR STATING PT'D HEART RATE WAS IN THE 30S AND DROPPING. KIKE HERNANDEZ TO ROOM, ROBERT BELLA CALLED AND COMPRESSIONS STARTED. ICU NURSE, RESPIRATORY AND DR. OVIEDO TO ROOM. NO PULSE DETECTED. NO RHYTHM. TIME OF CALLED [id number].
--- NOTE | 2020-06-03 19:55 | NUR ---
ONE CALL NOTIFIED AT THIS TIME. REFERENCE NUMBER RECEIVED. BODY RELEASED
== END 2020-06-03 18:52 | disposition expired | DRG 177 ==
LOC: ED 13:15 → EDHOLD 15:54 → 4E 06-03 09:12
PROVIDERS: Internal Medicine; Nurse Practitioner Family; Student in an Organized Health Care Education/Training Program; ADMIT Internal Medicine; ATTEND Internal Medicine
DX: U07.1 COVID-19 (principal); J96.01 Acute respiratory failure with hypoxia; N39.0 Urinary tract infection, site not specified; E87.2 Acidosis; I74.9 Embolism and thrombosis of unspecified artery; E44.0 Moderate protein-calorie malnutrition; R74.01 Elevation of levels of liver transaminase levels; Z20.828 Contact with and (suspected) exposure to other viral communicable diseases; F44.9 Dissociative and conversion disorder, unspecified; B96.20 Unspecified Escherichia coli [E. coli] as the cause of diseases classified elsewhere; R26.2 Difficulty in walking, not elsewhere classified; E66.9 Obesity, unspecified; E87.6 Hypokalemia; Z96.653 Presence of artificial knee joint, bilateral; I10 Essential (primary) hypertension; R31.29 Other microscopic hematuria; E78.2 Mixed hyperlipidemia; G62.9 Polyneuropathy, unspecified; F41.8 Other specified anxiety disorders; Z88.6 Allergy status to analgesic agent; Z88.8 Allergy status to other drugs, medicaments and biological substances; Z91.041 Radiographic dye allergy status; Z90.49 Acquired absence of other specified parts of digestive tract; Z90.710 Acquired absence of both cervix and uterus; Z79.899 Other long term (current) drug therapy; Z74.01 Bed confinement status